=== PATIENT | male | born 1975 | race Caucasian/White ===

== ENCOUNTER → 2018-07-17 | Outpatient (CLI) | payer BC ==
[~2018-07-17] MED LIST: PROHANCE 279.3MG/ML 5ML VIAL (A9576) As Ordered ONE
--- NOTE | 2018-07-17 21:02 | REP ---
MRI PITUITARY WITHOUT AND WITH CONTRAST: HISTORY: Hyperprolactinemia. CONTRAST: ProHance 10 mL. Several punctate areas of increased signal intensity on T2 weighted images are present in the subcortical white matter. This represents small vessel ischemic disease. There is no intraparenchymal hemorrhage, infarct or midline shift. The ventricular system is normal in appearance. There is no extracerebral collection. A focus of mixed decreased and increased signal intensity on contrast enhanced images is present in the pituitary gland. This represents a microadenoma. The microadenoma measures 8 mm in transverse x 6 mm in AP x 9 mm in cephalocaudal dimensions. The cavernous sinuses, optic chiasm and hypothalamus are normal in appearance. The infundibulum is midline . The visualized sinuses are clear. IMPRESSION:1. Minimal small vessel ischemic disease. 2. 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 Electronically Signed by Stephane Dozier MD 07/18/2018 08:35 A
== END ==
LOC: M RAD 16:45
PROVIDERS: ATTEND Internal Medicine Endocrinology, Diabetes & Metabolism
DX: I73.9 Peripheral vascular disease, unspecified (principal); E23.7 Disorder of pituitary gland, unspecified; E22.1 Hyperprolactinemia
CPT/HCPCS: 70553; A9576

== ENCOUNTER → 2019-07-20 | Outpatient (CLI) | payer BC ==
--- NOTE | 2019-07-21 17:44 | REPVR ---
PROCEDURE INFORMATION: Exam: MR Head Without and With Contrast Exam date and time: 07/20/2019 5:18 PM Age: 44 years old Clinical indication: Other: Hyperprolactinemia TECHNIQUE: Imaging protocol: MR of the head without and with intravenous contrast. Contrast material: PROHANCE`; Contrast volume: 10 ml; Contrast route: IV; COMPARISON: MRI PITUITARY W/O FOLL WITH 07/17/2018 5:08 PM FINDINGS: Brain: Scattered small foci T2 lengthening in the subcortical and centrum semiovale white matter not likely clinically significant. Ventricles: Normal. No ventriculomegaly. Bones/joints: Unremarkable. Soft tissues: Unremarkable. Sinuses: Normal as visualized. No acute sinusitis. Mastoid air cells: Normal as visualized. No mastoid effusion. Orbits: Unremarkable. Sella: Small focus of hypointensity in the right side of the anterior pituitary gland measuring 1.5 x 2.8 mm may represent a microadenoma (series 901, image 1 frame 8). IMPRESSION: 1. Findings compatible with a small microadenoma in the right side of the anterior pituitary gland. 2. No acute findings. Electronically signed by: Pee Ventura On 07/21/2019 17:43:52 PM
== END ==
LOC: M RAD 16:00
PROVIDERS: ATTEND Internal Medicine Endocrinology, Diabetes & Metabolism
DX: E22.1 Hyperprolactinemia (principal)
CPT/HCPCS: 70553; A9576

== ENCOUNTER → 2020-08-08 | Outpatient (CLI) | payer BC ==
[~2020-08-08] MED LIST changes: +PROHANCE 279.3MG/ML 15ML VIAL As Ordered ONE; -PROHANCE 279.3MG/ML 5ML VIAL (A9576) As Ordered ONE; +PROHANCE 279.3MG/ML 5ML VIAL As Ordered ONE
--- NOTE | 2020-08-12 12:21 | REPVR ---
PROCEDURE INFORMATION: Exam: MR Head Without and With Contrast, Sella Exam date and time: 08/08/2020 6:20 PM Age: 45 years old Clinical indication: Condition or disease; Other: Hyperprolactinemia TECHNIQUE: Imaging protocol: MR of the head without and with intravenous contrast. Exam focused on the sella. Contrast material: PROHANCE; Contrast volume: 10 ml; Contrast route: INTRAVENOUS (IV); COMPARISON: MRI PITUITARY W/O FOLL WITH 07/20/2019 4:35:13 PM FINDINGS: Brain: No acute infarct identified on the diffusion-weighted imaging. The T2 weighted imaging demonstrates punctate foci of increased signal intensity in the deep and subcortical white matter most likely representing trace chronic small vessel ischemic change. No enhancing parenchymal lesions. Ventricles: Stable. No Ventriculomegaly. Sella: An area of relative hypoenhancement in the posterior aspect of the pituitary gland measures 7 x 7 x 10 mm, image 7 series 901, image 44 series 801. In the setting of elevated prolactin, this is considered consistent with a macroadenoma which does appear partially cystic anteriorly (image 12 series 401). This is similar to the prior study, measures slightly smaller in apparent craniocaudal dimension (previously 9 mm compared to 7 mm currently). The pituitary stalk is deviated to the right. No suprasellar or parasellar mass component. The optic apparatus is nondisplaced. Bones/joints: Unremarkable. 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 Electronically signed by: Echo Del Castillo On 08/12/2020 12:22:02 PM
== END ==
LOC: M RAD 16:25
PROVIDERS: ATTEND Nurse Practitioner Family
DX: E22.1 Hyperprolactinemia (principal)
CPT/HCPCS: 70553; A9576